=== PATIENT | male | born 1975 | race Caucasian/White ===

== ENCOUNTER 2017-06-17 14:26 | Emergency (ER) | payer BC ==
[~2017-06-17] VITALS: Ht 167.6 cm; Wt 72.9 kg
[2017-06-17] MEDS ORDERED: PERCOCET 5/31 TABLET PO (16:20)
[2017-06-17] MEDS ORDERED: MOTRIN600 MG PO (16:20)
[2017-06-17 16:38] VITALS: BP 167/107
== END 2017-06-17 16:49 | disposition home or self-care (01) ==
LOC: EME 14:26
DX: T22.212A Burn of second degree of left forearm, initial encounter (principal); T21.12XA Burn of first degree of abdominal wall, initial encounter; T31.20 Burns involving 20-29% of body surface with 0% to 9% third degree burns; W40.8XXA Explosion of other specified explosive materials, initial encounter; Y99.0 Civilian activity done for income or pay; F17.200 Nicotine dependence, unspecified, uncomplicated
CPT/HCPCS: 99281; 99285